=== PATIENT | male | born 1955 | race Caucasian/White ===

== ENCOUNTER 2017-04-14 22:07 | Emergency (ER) | payer SELFPAY ==
[~2017-04-14] VITALS: Ht 185.4 cm; Wt 68.0 kg
[2017-04-14 22:08] VITALS: BP 142/73; PULSE 94; RESP 18; TEMP 98.4; O2SAT 96
--- NOTE | 2017-04-15 03:58 | PD ---
HPI Chief Complaint: Pain: Acute or Chronic Time Seen by Provider: 03:51 Travel History International Travel<30 days: No Contact w/Intl Traveler<30days: No Traveled to known affect area: No History of Present Illness HPI 62-year-old white male presents to emergency Department with complaints of chronic left hip pain. He states that he had fallen breaking his left hip in November. He was seen at [facility] and had ORIF done. He states that he was in the hospital for 2 weeks but then left AGAINST MEDICAL ADVICE. He is currently homeless on the streets. He lives in the [facility]. He states that he has chronic pain in his left hip and has mobility problems. The patient states that he would like to be evaluated due to this pain. He states that he is unable to ambulate any distance because of pain. He denies any acute trauma. No numbness, tingling. PFSH Past Medical History Narrative Medical Left femur fracture Tetanus Vaccination: < 5 Years Past Surgical History Narrative Surgical Left femur fracture with ORIF, septoplasty Family History Family History: Family Breast Cancer: No Family Myocardial Infarction: No Family Hypercholesterolemia: No Social History Alcohol Use: Yes Tobacco Use: Yes Substance Use: No Review of Systems Except as stated in HPI: all other systems reviewed are Neg Physical Exam Narrative GENERAL: [-] SKIN: Focused skin assessment warm/dry. HEAD: Atraumatic. Normocephalic. EYES: Pupils equal and round. No scleral icterus. No injection or drainage. ENT: No nasal bleeding or discharge. Mucous membranes pink and moist. NECK: Trachea midline. No JVD. CARDIOVASCULAR: Regular rate and rhythm. No murmur appreciated. RESPIRATORY: No accessory muscle use. Clear to auscultation. Breath sounds equal bilaterally. GASTROINTESTINAL: Abdomen soft, non-tender, nondistended. Hepatic and splenic margins not palpable. MUSCULOSKELETAL: No obvious deformities. No clubbing. No cyanosis. No edema. Patient complains of pain over the left greater trochanter. The skin is intact. There is no erythema or warmth. He has intact sensation with good distal pulses. He ambulates with antalgic gait. NEUROLOGICAL: Awake and alert. No obvious cranial nerve deficits. Motor grossly within normal limits. Normal speech. PSYCHIATRIC: Appropriate mood and affect; insight and judgment normal. Data Data Last Documented VS [facility] Medical Decision Making Medical Screen Exam Complete: Yes Emergency Medical Condition: Yes Medical Record Reviewed: Yes Differential Diagnosis Differential diagnoses: Acute pain, chronic pain, loose prosthesis, nonunion, Narrative Course I have ordered an x-ray of the left hip. I was notified that the patient was no longer in examination room and x-ray came to take the patient to imaging. It appears that the patient has left AWOL This is chronic left hip pain Diagnosis Primary Impression: absent without leave Additional Impression: Left hip pain Condition: Stable Riaz March Apr 15, 2017 03:58
== END 2017-04-15 04:09 | disposition home or self-care (01) ==
LOC: NED 22:07
DX: M25.552 Pain in left hip (principal); G89.29 Other chronic pain; Z72.0 Tobacco use; Z59.0 Homelessness
CPT/HCPCS: 99281